=== PATIENT | male | born 1980 | race African-American/Black ===

== ENCOUNTER 2017-10-07 23:57 | Emergency (ER) | payer SELFPAY ==
[~2017-10-07] VITALS: Ht 170.2 cm; Wt 95.3 kg
[~2017-10-07 23:57] MED LIST: AMBIEN5 MG PO; BACLOFEN10 MG PO; BUMETANIDE1 MG PO; CARDURA2 MG PO; CATAPRES-TTS 21 EACH TD; DICYCLOMINE HCL20 MG PO; DONNATAL E16.2 MG/5 PO; FEOSOL325 MG PO; HALOPERIDOL5 MG PO; HUMULIN R100 UNIT/2 SQ; IPRATROPIU0.2 MG/1 M NEB; LABETALOL HCL100 MG PO; LISINOPRIL10 MG PO; METOLAZONE5 MG PO; Magnesium/Alum/Simethicone PO; NIFEDIPINE ER30 M1 PO; SODIUM BICARBO650 MG PO; VANCOCIN HCL250 MG PO
[2017-10-08] MEDS ORDERED: ONDANSETRON HCL INJ 2 MG/ML VIAL IV STA (00:13)
[2017-10-08] MEDS ORDERED: NICARDIPINE HCL SOLN 25 MG in SODIUM CHLORIDE 0.9% 250ML 240 ML IV PRN (00:15)
[2017-10-08 00:42] LABS: BASOPHILS # (AUTO) 0.1 (0.0-0.1); BASOPHILS % 0.5 % (0.0-1.0); EOSINOPHILS % 0.2 % (0.0-6.0); HEMATOCRIT 31.5 % (38.2-49.6); HEMOGLOBIN 10.9 g/dL (14.0-18.0); LYMPHOCYTES % 8.1 % (18.0-39.1); MEAN CORPUSCULAR HEMOGLOBIN 27.9 pg (28-32); MEAN CORPUSCULAR HGB CONC 34.6 g/dL (31-35); MEAN CORPUSCULAR VOLUME 80.8 fL (81-99); MONOCYTES # (AUTO) 0.8 (0.2-0.8); MONOCYTES % 6.5 % (4.4-11.3); NEUTROPHILS # (AUTO) 10.3 (2.1-6.9); NEUTROPHILS % 84.3 % (38.7-80.0); PLATELET COUNT 203 x10e3/uL (140-360); RED CELL DISTRIBUTION WIDTH 13.4 % (11.7-14.4)
[2017-10-08 01:00] LABS: ALBUMIN 3.4 g/dL (3.5-5.0); ALBUMIN/GLOBULIN RATIO 0.8 (0.8-2.0); ANION GAP 17.7 mmol/L (8-16); CALCIUM 9.5 mg/dL (8.4-10.2); CREATININE, SERUM 4.89 mg/dL (0.72-1.25); POTASSIUM 3.7 mmol/L (3.5-5.1)
[2017-10-08 01:08] LABS: CREATINE KINASE MB 4.5 ng/mL (0.00-5.00); TROPONIN I 0.535 ng/mL (0-0.300)
--- NOTE | 2017-10-08 01:10 | Diagnostic Imaging Report ---
EXAMINATION: Head CT without contrast. HISTORY:Headache. COMPARISON:CT brain from 09/03/2017. TECHNIQUE: Multidetector axial images were obtained from the foramen magnum to the vertex without contrast. The images were reconstructed using brain and bone algorithms. Thin section brain images were reformatted into coronal and sagittal planes. Intravenous contrast: None IMAGE QUALITY: Acceptable. FINDINGS: Skull/scalp: No abnormality. Parenchyma: No abnormal density. No acute hemorrhage, mass or acute major vascular territorial infarct. Arteries: No density suggestive of thrombosis. Dural sinuses: No abnormal density suggestive of thrombosis. Ventricles: No hydrocephalus or displacement. Extra-axial spaces: No abnormal density. Brain volume: Normal for age. Craniocervical junction: No mass, Chiari malformation, or basilar invagination. Sella: No mass. Paranasal/mastoid sinuses: Imaged portions unremarkable. Incidental finding: Unchanged hyperdense material in posterior chamber of small right globe possibly represents silicone coil and the metallic surgical device along the left lateral globe. IMPRESSION: No acute intracranial abnormality. No change since CT brain from 09/03/2017. Signed by: Dr. Evon Luna M.D. on 10/08/2017 1:07 AM
[2017-10-08] MEDS ORDERED: HYDROMORPHONE 1MG/1ML INJ IV STA (01:19)
--- NOTE | 2017-10-08 01:25 | Diagnostic Imaging Report ---
EXAM: CHEST SINGLE (PORTABLE), AP 1 view DATE: 10/08/2017 12:07 AM Time stamp on exam: 0026 hours INDICATION: Abdominal pain, nausea vomiting COMPARISON: AP view of the chest September 23, 2017 FINDINGS: LINES/TUBES: Stable position of right internal jugular vein tunneled hemodialysis catheter. LUNGS: No consolidations or edema. PLEURA: No effusions or pneumothorax. HEART AND MEDIASTINUM: Normal size and contour. BONES AND SOFT TISSUES: Increased density of the bones, possibly related to renal osteodystrophy. IMPRESSION: No acute thoracic abnormality. Signed by: Dr. Lynn Piper M.D. on 10/08/2017 1:21 AM
[2017-10-08] MEDS ORDERED: PROMETHAZINE HCL (IM) 25 MG/ML VIAL IM ONE (01:30)
[2017-10-08] MEDS ORDERED: ASPIRIN 300 MG SUPP PR STA (02:02)
== END 2017-10-08 04:54 | disposition short-term general hospital (02) ==
LOC: ER 23:57
DX: R11.2 Nausea with vomiting, unspecified (principal); I12.0 Hypertensive chronic kidney disease with stage 5 chronic kidney disease or end stage renal disease; N18.6 End stage renal disease; Z99.2 Dependence on renal dialysis; R79.89 Other specified abnormal findings of blood chemistry; H40.9 Unspecified glaucoma; Z87.19 Personal history of other diseases of the digestive system
CPT/HCPCS: 36415; 70450; 71010; 80053; 82550; 82553; 83880; 84484; 85025; 93005; 99284; J1170; J2405; J2550; J7050

== ENCOUNTER 2017-11-01 13:09 | Emergency (ER) | payer SELFPAY ==
[~2017-11-01] VITALS: Ht 170.2 cm; Wt 95.3 kg
[2017-11-01] MEDS ORDERED: ONDANSETRON HCL INJ 2 MG/ML VIAL IV STA (13:25)
[2017-11-01] MEDS ORDERED: SODIUM CHLORIDE 0.9% 1000ML 1,000 ML IV STA (13:25)
[2017-11-01 13:56] LABS: BASOPHILS # (AUTO) 0.1 (0.0-0.1); EOSINOPHILS # (AUTO) 0.3 (0.0-0.4); EOSINOPHILS % 3.1 % (0.0-6.0); HEMOGLOBIN 10.8 g/dL (14.0-18.0); LYMPHOCYTES # (AUTO) 1.3 (1.0-3.2); LYMPHOCYTES % 14.3 % (18.0-39.1); MEAN CORPUSCULAR HEMOGLOBIN 29.3 pg (28-32); MEAN CORPUSCULAR VOLUME 81.3 fL (81-99); MONOCYTES # (AUTO) 0.7 (0.2-0.8); NEUTROPHILS # (AUTO) 6.6 (2.1-6.9); NEUTROPHILS % 73.4 % (38.7-80.0); PLATELET COUNT 286 x10e3/uL (140-360); RED BLOOD COUNT 3.69 x10e6/uL (4.3-5.7); RED CELL DISTRIBUTION WIDTH 14.4 % (11.7-14.4)
[2017-11-01 14:06] LABS: INR 0.93; PROTHROMBIN TIME 12.9 seconds (11.9-14.5)
[2017-11-01 14:07] LABS: PARTIAL THROMBOPLASTIN TIME 28.6 seconds (23.8-35.5)
[2017-11-01] MEDS ORDERED: HYDROMORPHONE 2MG/ML INJ IV ONE (14:15)
[2017-11-01 14:16] LABS: ALBUMIN 4.4 g/dL (3.5-5.0); ALBUMIN/GLOBULIN RATIO 1.1 (0.8-2.0); ANION GAP 23.9 mmol/L (8-16); CALCIUM 9.9 mg/dL (8.4-10.2); CREATININE, SERUM 8.41 mg/dL (0.72-1.25); POTASSIUM 3.9 mmol/L (3.5-5.1)
[2017-11-01 14:28] LABS: KETONES,URINE NEGATIVE (NEGATIVE); LEUKOCYTE ESTERASE ,URINE TRACE (NEGATIVE); NITRITE,URINE NEGATIVE (NEGATIVE); PROTEIN,URINE DIPSTICK 3+ (NEGATIVE); URINE UROBILINOGEN 1 mg/dL (0.2 - 1)
[2017-11-01 14:29] LABS: BILIRUBIN,URINE 2+ (NEGATIVE); CLARITY,URINE SL CLOUDY (CLEAR); COLOR,URINE AMBER (YELLOW)
[2017-11-01 14:35] LABS: CREATINE KINASE MB 4.1 ng/mL (0.00-5.00); TROPONIN I 0.044 ng/mL (0-0.300)
[2017-11-01 14:43] LABS: BACTERIA,URINE FEW /HPF; EPITHELIAL CELLS,URINE FEW /LPF; RBC,URINE 0-5 /HPF (0-5); WBC,URINE (MAN) 0-5 /HPF (0-5)
[2017-11-01 15:00] VITALS: BP 204/117
[2017-11-01] MEDS ORDERED: KETOROLAC TROMETHAMINE 30 MG/ML VIAL IV ONE (15:00)
[2017-11-01] MEDS ORDERED: MORPHINE SULFATE 5 MG/ML VIAL IV ONE (16:00)
[2017-11-01 16:07] VITALS: BP 210/132
[2017-11-01] MEDS ORDERED: PROMETHAZINE 12.5MG/ NACL 0.9% 12.5 MG/50 ML BAG IV ONE (16:30)
[2017-11-01] MEDS ORDERED: HYDRALAZINE HCL 20 MG/ML VIAL IV ONE ×2 (16:30)
--- NOTE | 2017-11-01 16:39 | Diagnostic Imaging Report ---
EXAM: CT Abdomen and Pelvis WITHOUT contrast INDICATION: Renal stones, left flank pain COMPARISON: None. TECHNIQUE: Abdomen and pelvis were scanned utilizing a multidetector helical scanner from the lung base to the pubic symphysis without administration of IV contrast. Absence of intravenous contrast decreases sensitivity for detection of focal lesions and vascular pathology. Coronal and sagittal reformations were obtained. Routine protocol was performed. IV CONTRAST: None. ORAL CONTRAST: Water RADIATION DOSE: Total DLP: 418.3 mGy*cm Estimated effective dose: (DLP x 0.015 x size factor) mSv COMPLICATIONS: None FINDINGS: LINES and TUBES: None. LOWER THORAX: Small to moderate low attenuation pericardial effusion with maximum thickness of 1.3 cm. No compression of the cardiac chambers on limited evaluation. The visualized lung bases are clear. HEPATOBILIARY: No focal hepatic lesions. No biliary ductal dilation. GALLBLADDER: Cholecystectomy. SPLEEN: No splenomegaly. PANCREAS: No focal masses or ductal dilatation. ADRENALS: No adrenal nodules KIDNEYS/URETERS: No hydronephrosis. No cystic or solid mass lesions. No stones. GI TRACT: No abnormal distention, wall thickening, or evidence of bowel obstruction. Appendix is no visualized. PELVIC ORGANS/BLADDER: Diffuse wall thickening of the urinary bladder more than expected despite poor distention. The prostate is normal in size. LYMPH NODES: No lymphadenopathy. VESSELS: Unremarkable. PERITONEUM / RETROPERITONEUM: No free air or fluid. BONES: Unremarkable. SOFT TISSUES: Unremarkable. IMPRESSION: 1. No calcified nephroureterolithiasis or hydronephrosis. 2. Diffuse wall thickening of the urinary bladder more than expected despite poor distention. Correlate with urinary analysis for urinary infection. Signed by: Dr. Julissa Arreguin M.D. on 11/01/2017 4:36 PM
--- NOTE | 2017-11-01 17:18 | Diagnostic Imaging Report ---
EXAMINATION: CHEST SINGLE (PORTABLE) INDICATION: \S\SOB \[id number] \S\[id number] \S\Y COMPARISON: Chest radiograph on 10/08/2017 FINDINGS: AP view TUBES and LINES: Right IJ hemodialysis catheter with tip overlying the superior right atrium. LUNGS: Lungs are well inflated. Lungs are clear. There is no evidence of pneumonia or pulmonary edema. PLEURA: No pleural effusion or pneumothorax. HEART AND MEDIASTINUM: The cardiomediastinal silhouette is unremarkable.. BONES AND SOFT TISSUES: No acute osseous lesion. Soft tissues are unremarkable. UPPER ABDOMEN: No free air under the diaphragm. IMPRESSION: No acute thoracic abnormality. Signed by: Dr. Julissa Arreguin M.D. on 11/01/2017 5:15 PM
[2017-11-01 18:10] VITALS: BP 179/117
== END 2017-11-01 18:40 | disposition home or self-care (01) ==
LOC: ER 13:09
DX: R10.32 Left lower quadrant pain (principal); R11.2 Nausea with vomiting, unspecified; N39.0 Urinary tract infection, site not specified
CPT/HCPCS: 36415; 71010; 74176; 80053; 81001; 82550; 82553; 83690; 84484; 85025; 85610; 85730; 87086; 87400; 93005; 99284; J1170; J1885; J2405; J2550; J7030